=== PATIENT | female | born 1985 ===

== ENCOUNTER → 2018-09-02 | Outpatient (CLI) | payer BC ==
--- NOTE | 2018-09-02 16:30 | RADIOLOGY IMAGING REPORT ---
FACILITY: [facility] - [place] PATIENT NAME: Mey Arnada : 1985 MR: [id number] V: [id number] EXAM DATE: ORDERING PHYSICIAN: MADDY GALLO TECHNOLOGIST: Location: [facility] Patient: Mey Aranda : 1985 Visit/Account:[id number] Date of Sevice: 09/02/2018 EXAMINATION: Doppler ultrasound deep veins unilateral lower extremity HISTORY: Factor V Leiden deficiency. Left calf pain. Recent prolonged car ride. COMPARISON: None. FINDINGS: Grayscale compression, duplex and color Doppler interrogation of the left lower extremity deep veins from common femoral vein to proximal calf was performed. The greater saphenous vein in the ipsilatera l proximal thigh was evaluated using similar technique. Left lower extremity: Common femoral vein: Patent. Femoral vein: Patent. Deep femoral vein: Patent. Popliteal vein: Patent. Visualized deep calf veins: Patent. Posterior tibial, anterior tibial and peroneal calf veins are pa tent. Greater saphenous vein in the proximal thigh: Patent. Popliteal fossa: No popliteal cyst or bursal fluid collection is seen. Waveforms: Normal respiratory phasicity and spontaneous flow is present. IMPRESSION: 1. No evidence for deep venous thrombosis of the left lower extremity. 2. Left calf veins are patent. Report Dictated By: Marta Cook MD at 09/02/2018 4:21 PM Report E-Signed By: Marta Cook MD at 09/02/2018 4:23 PM WSN:[id number]
== END ==
LOC: US 15:15
PROVIDERS: ATTEND Obstetrics & Gynecology
DX: M79.662 Pain in left lower leg (principal)